=== PATIENT | female | born 1940 | race Caucasian/White ===

== ENCOUNTER 2017-08-15 17:12 | Emergency (ER) | payer MEDICARE, BC ==
[~2017-08-15] VITALS: Ht 170.2 cm; Wt 72.7 kg
[~2017-08-15 17:12] MED LIST: DIOVAN80 MG PO; HCTZ; HCTZ 25MG TAB25 MG PO; LISINOPRIL2.5 MG PO; MOTRIN 800800 MG/TAB PO; NORCO PO
[2017-08-15 17:18] VITALS: BP 201/98; TEMP 97.9
[2017-08-15] MEDS ORDERED: COZAAR 50MG50 MG/TAB PO (17:50)
[2017-08-15] MEDS ORDERED: XARELTO20 MG PO (17:50)
[2017-08-15] MEDS ORDERED: HCTZ 25MG TAB25 MG PO (17:51)
[2017-08-15] MEDS ORDERED: MULTIPLE VITAMI1 CAP PO (17:51)
[2017-08-15] MEDS ORDERED: OMEGA-3 1000 MG1 CAP PO (17:52)
[2017-08-15] MEDS ORDERED: VITAMIN D31000 I1 PO (17:52)
[2017-08-15 17:59] LABS: BASO # 0.1 (0.0-0.2); BASO % 1.1 % (0.0-2.0); EOS # 0.5 (0.0-0.7); EOS % 5.6 % (0-4.0); GRAN # 4.1 (1.4-6.5); GRAN % 48.3 % (42.2-75.2); HEMATOCRIT 46.2 % (37.0-47.0); HEMOGLOBIN 15.3 g/dl (12.5-16.0); LYMPH # 3.2 (1.2-3.4); LYMPH % 37.5 % (20.0-51.0); MEAN CELL VOLUME 86 fl (80.0-100.0); MEAN CORPUSCULAR HEMOGLOBIN 28 pg (27.0-31.0); MEAN CORPUSCULAR HGB CONC 33 g/dl (33.0-37.0); MEAN PLATELET VOLUME 9.2 fl (7.4-10.4); MONO # 0.6 (0.1-0.6); MONO % 6.9 % (1.7-9.3); PLATELET COUNT 241 K/mm3 (130-400); RED BLOOD COUNT 5.38 M/mm3 (4.10-5.30); WHITE BLOOD COUNT 8.4 K/mm3 (4.8-10.8)
[2017-08-15 18:12] LABS: INR 1.3 (0.8-3.0); PROTHROMBIN TIME 14.2 SECONDS (9.7-12.8)
[2017-08-15 19:13] VITALS: PULSE 79
== END 2017-08-15 19:14 | disposition home or self-care (01) ==
LOC: COL.ER 17:12
PROVIDERS: Family Medicine
DX: S06.330A Contusion and laceration of cerebrum, unspecified, without loss of consciousness, initial encounter (principal); I10 Essential (primary) hypertension; K21.9 Gastro-esophageal reflux disease without esophagitis; Z79.01 Long term (current) use of anticoagulants; W01.198A Fall on same level from slipping, tripping and stumbling with subsequent striking against other object, initial encounter

== ENCOUNTER → 2017-10-11 | Day surgery (SDC) | payer MEDICARE, BC ==
[~2017-10-11] VITALS: Ht 170.2 cm; Wt 73.1 kg
[~2017-10-11] MED LIST changes: +CALTRATE-600 W600 MG PO; +COZAAR 50MG50 MG/TAB PO; +FLAX OIL1000 MG PO; +MULTIPLE VITAMI1 CAP PO; +OMEGA-3 1000 MG1 CAP PO; +RESTASIS 60VL OU; +TUMS500 MG PO; +TYLENOL 500MG500 MG PO; +VITAMIN D31000 I1 PO; +XARELTO20 MG PO
[2017-10-11 13:12] VITALS: BP 128/77; PULSE 86; TEMP 97.5
[2017-10-11 15:21] VITALS: BP 121/75; PULSE 80; TEMP 96.9
[2017-10-11 15:30] VITALS: BP 122/81; PULSE 82
[2017-10-11 15:50] VITALS: BP 159/84; PULSE 82
[2017-10-11 16:31] VITALS: BP 118/74; PULSE 76
== END ==
LOC: SDCO 12:33
DX: Z12.11 Encounter for screening for malignant neoplasm of colon (principal); K64.0 First degree hemorrhoids; K57.30 Diverticulosis of large intestine without perforation or abscess without bleeding; K22.2 Esophageal obstruction; K44.9 Diaphragmatic hernia without obstruction or gangrene; K29.30 Chronic superficial gastritis without bleeding; I12.9 Hypertensive chronic kidney disease with stage 1 through stage 4 chronic kidney disease, or unspecified chronic kidney disease; E11.22 Type 2 diabetes mellitus with diabetic chronic kidney disease; N18.3 Chronic kidney disease, stage 3 (moderate); K21.9 Gastro-esophageal reflux disease without esophagitis; M19.90 Unspecified osteoarthritis, unspecified site; E78.5 Hyperlipidemia, unspecified; Z86.718 Personal history of other venous thrombosis and embolism; Z90.49 Acquired absence of other specified parts of digestive tract; Z79.01 Long term (current) use of anticoagulants
CPT/HCPCS: OP; C1726; J2704; J7030

== ENCOUNTER → 2017-10-21 | Outpatient (CLI) | payer MEDICARE, BC | LOC: MC.RAD 09:33 | DX: Z12.31 Encounter for screening mammogram for malignant neoplasm of breast (principal) ==

== ENCOUNTER 2017-11-01 11:43 | Day surgery (SDC) | payer MEDICARE, BC ==
[~2017-11-01] VITALS: Ht 170.2 cm; Wt 73.5 kg
[~2017-11-01 11:43] MED LIST changes: +CENTRUM SILVER1 TAB PO; -MULTIPLE VITAMI1 CAP PO
[2017-11-01] MEDS ORDERED: PROTONIX 40MG T40 MG PO (12:25)
[2017-11-01 12:49] VITALS: BP 131/82; PULSE 70; TEMP 97.7
[2017-11-01 14:50] VITALS: BP 130/75; PULSE 79; TEMP 96.5
[2017-11-01 15:05] VITALS: BP 123/70; PULSE 77
[2017-11-01 15:20] VITALS: BP 124/68; PULSE 75
[2017-11-01 15:35] VITALS: BP 139/66; PULSE 64
== END 2017-11-01 15:55 | disposition home or self-care (01) ==
LOC: SDCO 11:43
DX: K44.9 Diaphragmatic hernia without obstruction or gangrene (principal); K29.30 Chronic superficial gastritis without bleeding; K21.9 Gastro-esophageal reflux disease without esophagitis; K58.9 Irritable bowel syndrome, unspecified; Z86.718 Personal history of other venous thrombosis and embolism; Z90.49 Acquired absence of other specified parts of digestive tract; M19.90 Unspecified osteoarthritis, unspecified site; I12.9 Hypertensive chronic kidney disease with stage 1 through stage 4 chronic kidney disease, or unspecified chronic kidney disease; E11.22 Type 2 diabetes mellitus with diabetic chronic kidney disease; N18.3 Chronic kidney disease, stage 3 (moderate)
CPT/HCPCS: OP; J2704; J7030

== ENCOUNTER → 2018-11-10 | Outpatient (CLI) | payer MEDICARE, BC ==
[~2018-11-10] MED LIST changes: +PROTONIX 40MG T40 MG PO
== END ==
LOC: MC.RAD 13:25
DX: Z12.31 Encounter for screening mammogram for malignant neoplasm of breast (principal)

== ENCOUNTER → 2019-11-27 | Outpatient (CLI) | payer MEDICARE, BC | LOC: MC.RAD 11:07 | DX: Z12.31 Encounter for screening mammogram for malignant neoplasm of breast (principal) ==

== ENCOUNTER → 2020-12-02 | Outpatient (CLI) | payer MEDICARE, BC | LOC: MC.RAD 09:30 | DX: Z12.31 Encounter for screening mammogram for malignant neoplasm of breast (principal) ==

== ENCOUNTER → 2022-07-01 | Outpatient (CLI) | payer MEDICARE, BC | LOC: COL.VAS 10:08 | DX: Z86.718 Personal history of other venous thrombosis and embolism (principal) ==

== ENCOUNTER → 2023-01-18 | Outpatient (CLI) | payer MEDICARE, BC | LOC: MC.RAD 11:13 | DX: Z12.31 Encounter for screening mammogram for malignant neoplasm of breast (principal) ==

== ENCOUNTER 2023-11-22 18:01 | Inpatient (IN) | payer MEDICARE, BC ==
[~2023-11-22] VITALS: Ht 167.6 cm; Wt 60.3 kg
[2023-11-22] MEDS ORDERED: NS 1,000 ML IV ONE (18:15)
[2023-11-22 18:34] LABS: BASO # 0.1 K/mm3 (0.0-0.2); BASO % 0.3 % (0.0-2.0); EOS % 0.2 % (0.0-4.0); GRAN # 17.2 K/mm3 (1.4-6.5); GRAN % 84.5 % (42.2-75.2); HEMOGLOBIN 11.6 g/dl (12.5-16.0); LYMPH # 1.8 K/mm3 (1.2-3.4); LYMPH % 8.6 % (20.0-51.0); MEAN CELL VOLUME 77 fl (80.0-100.0); MEAN CORPUSCULAR HEMOGLOBIN 25 pg (27-31); MEAN CORPUSCULAR HGB CONC 32 g/dl (33.0-37.0); MEAN PLATELET VOLUME 8.2 fl (7.4-10.4); MONO # 1.1 K/mm3 (0.1-0.6); MONO % 5.2 % (1.7-9.3); PLATELET COUNT 356 K/mm3 (130-400); RED BLOOD COUNT 4.69 M/mm3 (4.10-5.30); REDCELL DISTRIBUTION WIDTH-CV 15.9 % (11.5-14.5)
[2023-11-22 18:36] LABS: HEMATOCRIT 36.3 % (37.0-47.0)
[2023-11-22 18:52] LABS: ALBUMIN 2.3 gm/dL (3.4-4.8); BILIRUBIN,TOTAL 0.3 mg/dL (0.2-1.2); CALCIUM 9.4 mg/dL (8.4-10.2); CREATININE, serum 0.88 mg/dL (0.57-1.11); POTASSIUM 4.5 mmol/L (3.5-4.5); TOTAL PROTEIN 6.5 gm/dL (6.2-8.1)
[2023-11-22 19:59] LABS: COLLECTION METHOD CLEAN CATCH
[2023-11-22 20:24] LABS: SQUAMOUS EPITHELIAL 0-2 /hpf (0-10); URINE APPEARANCE Clear (CLEAR/HAZY); URINE BACTERIA None Seen /hpf (NONE SEEN); URINE BLOOD 1+ (NEGATIVE); URINE COLOR Yellow (YELLOW); URINE GLUCOSE Negative (NEGATIVE); URINE KETONE Negative (NEGATIVE); URINE NITRATE Negative (NEGATIVE); URINE PROTEIN(semi-quant) Negative (NEGATIVE); URINE RBC 0-2 /hpf (0-2)
[2023-11-22] MEDS ORDERED: diphenhydrAMINE 50 MG/ML 1 ML VIAL IV ONE (20:45)
[2023-11-22] MEDS ORDERED: Iohexol 300 - 100 ML VIAL IV ONE (21:19)
[2023-11-22] MEDS ORDERED: NS 60 ML IV ONE (21:20)
[2023-11-22] MEDS ORDERED: cefTRIAXone 1 G in Water For Injection,Sterile 10 ML IV ONE (22:30)
[2023-11-22] MEDS ORDERED: Ondansetron 4 MG/2 ML VIAL IV PRN (22:30)
[2023-11-22] MEDS ORDERED: Acetaminophen 325 MG TAB PO PRN (22:30)
[2023-11-22] MEDS ORDERED: metroNIDAZOLE 100 ML IV ONE (22:30)
[2023-11-22] MEDS ORDERED: LR 1,000 ML IV SCH (22:45)
[2023-11-22] MEDS ORDERED: Morphine 4 MG/ML VIAL IV ONE (23:00)
[2023-11-23] VITALS (18 sets, daily range): BP systolic 109–179; BP diastolic 46–88; PULSE 64–87; TEMP 97.4–99.2
[2023-11-23] MEDS ORDERED: TOPROL XL 25MG25 MG PO (01:10)
[2023-11-23] MEDS ORDERED: TAMBOCOR50 MG PO (01:10)
[2023-11-23] MEDS ORDERED: GLUCOPHAGE500 MG/TAB PO (01:11)
[2023-11-23] MEDS ORDERED: FOSAMAX 35MG35 MG PO (01:11)
[2023-11-23] MEDS ORDERED: Morphine 4 MG/ML VIAL IV PRN ×2 (01:15)
[2023-11-23] MEDS ORDERED: Naloxone 0.4 MG/ML VIAL IV PRN (01:15)
[2023-11-23] MEDS ORDERED: Dextrose 50% Water 25 GM/50 ML SYRINGE IV PRN (01:30)
[2023-11-23] MEDS ORDERED: Dextrose (Glucose) 15 GM (4 x 3.75 GM) Chewable TABLET PACK PO PRN (01:30)
[2023-11-23] MEDS ORDERED: Glucagon 1 MG VIAL IM PRN (01:30)
--- NOTE | 2023-11-23 01:45 | NUR ---
pt arrived to room 345 at 0006. pt is a&o x 2-3 with confusion. pt is not an accurate historian. admission assessment and physical assessment complete. attempted med rec but pt is confused/cannot remember all of her medications. called next of kin for medication list and they are looking for it. venessa WOODS is aware of medication discrepancies. pt is unsteady with gait. pt reports all medications given in the ED have provided her relief. pt on RA. ivf running to left hand iv at 100ml/hr. bed alarm on. call light in reach. all needs met at this time.
[2023-11-23 07:06] LABS: BASO # 0.1 K/mm3 (0.0-0.2); BASO % 0.4 % (0.0-2.0); CALCIUM 8.8 mg/dL (8.4-10.2); CREATININE, serum 0.8 mg/dL (0.57-1.11); EOS # 0.1 K/mm3 (0.0-0.7); EOS % 0.4 % (0.0-4.0); GRAN # 13.7 K/mm3 (1.4-6.5); GRAN % 80.3 % (42.2-75.2); HEMOGLOBIN 11.7 g/dl (12.5-16.0); LYMPH # 2.1 K/mm3 (1.2-3.4); LYMPH % 12.1 % (20.0-51.0); MEAN CELL VOLUME 78 fl (80.0-100.0); MEAN CORPUSCULAR HEMOGLOBIN 25 pg (27-31); MEAN CORPUSCULAR HGB CONC 32 g/dl (33.0-37.0); MEAN PLATELET VOLUME 8.6 fl (7.4-10.4); MONO # 0.9 K/mm3 (0.1-0.6); MONO % 5.5 % (1.7-9.3); PLATELET COUNT 380 K/mm3 (130-400); POTASSIUM 3.9 mmol/L (3.5-4.5); RED BLOOD COUNT 4.72 M/mm3 (4.10-5.30); REDCELL DISTRIBUTION WIDTH-CV 15.8 % (11.5-14.5)
[2023-11-23 07:08] LABS: HEMATOCRIT 36.8 % (37.0-47.0)
[2023-11-23] MEDS ORDERED: Insulin Aspart (NovoLOG) SQ SCH (08:00)
--- NOTE | 2023-11-23 08:00 | NUR ---
PATIENT IS A&O X2, DROWSY BUT EASILY ARROUSED. PATIENT HAS HX OF DEMENTIA. VSS ON TELE. NO COMPLAINTS AT THIS TIME. PATIENT SLEEPING UP IN BED. NPO FOR POSSIBLE ABSCESS DRAIN PLACEMENT TODAY. IV ABX INFUSING VIA PUMP. AM BS WAS 93, NO SSI REQUIRED. HEAD TO TOE ASSESSMENT COMPLETE. NO OTHER NEEDS AT THIS TIME. CALL LIGHT IN REACH. BED ALARM ON.
--- NOTE | 2023-11-23 11:30 | NUR ---
Pt to ct per wheelchair per ct staff. Pt up onto ct table in supine position. Monitors applied and O2 on at 2l/nc.
[2023-11-23] MEDS ORDERED: fentaNYL 50 MCG/ML 2 ML VIAL IV SCH (11:39)
[2023-11-23] MEDS ORDERED: Midazolam 2 MG/2 ML VIAL IV SCH (11:39)
--- NOTE | 2023-11-23 11:45 | NUR ---
Purulent drainage removed from drain site and placed in specimen container. Removed a total of 35 mls of purulent drainage.
--- NOTE | 2023-11-23 11:50 | NUR ---
#[address] IN LEFT LOWER ABDOMEN.
--- NOTE | 2023-11-23 17:12 | NUR ---
bed worker notes patient was sleeping when she went to meet with the patient to discuss discharge planning. Patient woke up and was able to tell the social services assistant that she lives in [place] and her PCP is Dr. Youssef. Patient struggled to stay awake. SW decided to come back the following day to finish the intake and discuss PT/OT recommendations of post acute rehab.
[2023-11-23] MEDS ORDERED: FOSAMAX 10M10 MG/TAB PO (17:47)
[2023-11-23] MEDS ORDERED: FOLIC ACID0.4 MG PO (17:50)
--- NOTE | 2023-11-23 19:07 | NUR ---
report received from emperatriz ram. pt resting in bed eating dinner. pt denies pain. bed alarm on. call light in reach. all needs met at this time.
[2023-11-23] MEDS ORDERED: Carboxymethylcellulose PF Ophth 0.4 ML DROPPERETTE OP SCH (21:00)
[2023-11-23] MEDS ORDERED: cycloSPORINE Ophth Emulsion **** subs to Carboxymethylcellulose 1 % Ophth Gel OP SCH (21:00)
--- NOTE | 2023-11-23 21:43 | NUR ---
critical care called and reported pacer spikes on the pt tele strip. pt remains asymptomatic. updated [facility]. no new orders at this time.
--- NOTE | 2023-11-23 23:23 | NUR ---
shift assessment complete, see documentation. iv abx running to right forearm iv without issue. pt amb to bathroom with slightly unsteady gait. pt continues to deny pain. abscess drain intact with bloody drainage. pt resting in bed. bed alarm on. call light in reach. all needs met at this time.
[2023-11-24] VITALS (10 sets, daily range): BP systolic 128–156; BP diastolic 67–71; PULSE 61–82; TEMP 97.5–98.2
[2023-11-24 07:05] LABS: BASO # 0.1 K/mm3 (0.0-0.2); BASO % 0.3 % (0.0-2.0); EOS # 0.1 K/mm3 (0.0-0.7); EOS % 0.3 % (0.0-4.0); GRAN % 81.7 % (42.2-75.2); HEMOGLOBIN 11.1 g/dl (12.5-16.0); LYMPH # 2.3 K/mm3 (1.2-3.4); LYMPH % 12.3 % (20.0-51.0); MEAN CELL VOLUME 78 fl (80.0-100.0); MEAN CORPUSCULAR HEMOGLOBIN 25 pg (27-31); MEAN CORPUSCULAR HGB CONC 32 g/dl (33.0-37.0); MEAN PLATELET VOLUME 8.7 fl (7.4-10.4); MONO # 0.8 K/mm3 (0.1-0.6); MONO % 4.3 % (1.7-9.3); PLATELET COUNT 362 K/mm3 (130-400); REDCELL DISTRIBUTION WIDTH-CV 15.9 % (11.5-14.5)
[2023-11-24 07:11] LABS: HEMATOCRIT 34.9 % (37.0-47.0)
[2023-11-24 07:23] LABS: CALCIUM 8.6 mg/dL (8.4-10.2); CREATININE, serum 0.87 mg/dL (0.57-1.11); MAGNESIUM 1.6 mg/dL (1.6-2.6); POTASSIUM 3.7 mmol/L (3.5-4.5)
--- NOTE | 2023-11-24 13:33 | NUR ---
Initial visit; Patient thanked Surgical Resident for looking in on her and offering God's blessings. Rose Mary and Surgical Resident talked about her recent illness and her pain level. She was receptive to Surgical Resident keeping her in her prayers. Surgical Resident will follow-up tomorrow.
--- NOTE | 2023-11-24 13:53 | NUR ---
log raft worker reviewed PT/OT notes. PT states home with home health. OT states likely post acute rehab. MEGAN and SW student, Lisa, met with patient to discuss discharge planning. Patient lives alone in [place]. Best contact is patient's nephew, Fernie, P# [phone]. PCP is Domonique, [facility]. No issues affording medications. INsurance is Medicaid A and B and BCBS. DPOA-HC Is Fernie and Karissa. Patient has walker but does not currently use it. Reports to be independent with ADLS and her family transports her to appointments. MEGAN provided the PT and OT recommendations along with the Medicare.gov list of options for HH and SNF. MEGAN will follow up for patient's choice of service and which agency. Discharge plan: TBD
[2023-11-24] MEDS ORDERED: GLUCOPHAGE XR500 M1 PO (16:16)
--- NOTE | 2023-11-24 16:16 | NUR ---
Metformin clarified with the patient, [facility], and with Dr. Youssef's Nurse. Dr. Aquino notified and med orders.
--- NOTE | 2023-11-24 16:20 | NUR ---
food service utility worker met with patient, family members and patient's nurse. Patient is hoping to return home with home health. SW updated them that they were uncertain if patient would need to receive IV antibiotics still upon discharge or if she would switch to oral antibiotics. Family members are going to review home health options and notify the mental health social worker. SW will continue to follow.
[2023-11-24 17:08] LABS: CLOSTRIDIUM DIFF A/B NEG
[2023-11-24] MEDS ORDERED: Loperamide 2 MG CAP PO PRN (17:30)
[2023-11-24] MEDS ORDERED: metFORMIN XR 500 MG TAB PO SCH (21:00)
[2023-11-25] VITALS (13 sets, daily range): BP systolic 114–177; BP diastolic 66–73; PULSE 52–59; TEMP 97.3–98
[2023-11-25 06:33] LABS: HEMOGLOBIN 10.5 g/dl (12.5-16.0); MEAN CELL VOLUME 79 fl (80.0-100.0); MEAN CORPUSCULAR HEMOGLOBIN 25 pg (27-31); MEAN CORPUSCULAR HGB CONC 32 g/dl (33.0-37.0); MEAN PLATELET VOLUME 8.6 fl (7.4-10.4); PLATELET COUNT 369 K/mm3 (130-400); RED BLOOD COUNT 4.19 M/mm3 (4.10-5.30)
[2023-11-25 06:35] LABS: HEMATOCRIT 32.9 % (37.0-47.0)
[2023-11-25 06:47] LABS: CALCIUM 8.6 mg/dL (8.4-10.2); CREATININE, serum 0.79 mg/dL (0.57-1.11); POTASSIUM 3.6 mmol/L (3.5-4.5)
[2023-11-25 07:43] LABS: ANISOCYTOSIS 1+; BAND 8 % (0-10); EOSINOPHIL 2 % (0-4); LYMPHOCYTE 13 % (20.0-51.0); METAMYELOCYTE 1 % (0-0); NEUTROPHILS 71 % (42.0-75.2); PLATELET ESTIMATE NORMAL (NORMAL)
--- NOTE | 2023-11-25 08:40 | NUR ---
Assisted pt to the restroom. Pt did well, standby assist with walker. Pt not having any complaints of pain at this time. Minimal output in the abscess drain. Assisted pt to the chair once done and assisted with ordering breakfast
[2023-11-25] MEDS ORDERED: Potassium Bicarbonate/Citrate 20 MEQ Effervescent TAB PO SCH (09:00)
[2023-11-25] MEDS ORDERED: *Potassium Replacement Protocol MC SCH (09:00)
--- NOTE | 2023-11-25 09:31 | NUR ---
Follow-up visit; Patient states that she is feeling better and getting stronger. She thanked Director On Air for thinking of her and continuing to keep her in Director On Air's prayers. Director On Air wished her well and offered God's blessings.
--- NOTE | 2023-11-25 10:18 | NUR ---
Pt continues to do well. Finished her breakfast with no complaints. Pt remains sitting up in the chair
--- NOTE | 2023-11-25 13:00 | NUR ---
Pt refused lunch, had protein drink instead. Pt continues to get up to the restroom often. She does well with standby assist using a walker. No complaints of pain. Updated family on pt status. Discussed with social work as well.
--- NOTE | 2023-11-25 14:54 | NUR ---
Report given to Andrew NUNEZ
--- NOTE | 2023-11-25 15:01 | NUR ---
REPORT FROM WYATT MARADIAGA RN. ASSUMING PT CARE ATTHIS TIME.
--- NOTE | 2023-11-25 16:22 | NUR ---
SW Student faxed SNF referrals to [facility].
--- NOTE | 2023-11-25 16:45 | NUR ---
supervisor hand workers was notified by the patient's nurse that patient's family would like SNF referrals sent. SW met with patient and she chose [facility], [facility] and [facility]. MEGAN Student, Lisa, faxed referral to the above facilities.
--- NOTE | 2023-11-25 19:55 | NUR ---
ALERTED BY PCT, AFIA HAD BLOODY STOOL-BRIGHT RED AND MINIMAL. CONSULTED MD JAYLIN IN PERSON-WHOM PROVIDED BOTH THIS NURSE AND PATIENT'S FAMILY MEMBER WITH DIVERTICULITIS EDUCATION. HE STAYED LONGER WITH FAMILY MEMBER AND ADDRESSED OTHER CONCERNS. NO NEW ORDERS
--- NOTE | 2023-11-25 20:00 | NUR ---
UPON SHIFT ASSESSMENT, AFIA WAS AXO X4 AND UP IN BED. PERCUTANEOUS DRAIN BAG ON LT SIDE CONTAINS 20 MLS SEROSANGUINEOUS FLUID. INSERTION SITE IS CDI. SHE DENIES PAIN OR NEEDS AT THIS TIME. BEDALARM ON.
--- NOTE | 2023-11-25 20:00 | NUR ---
BP RECHECK- 165 SYSTOLIC TRENDING DOWN FROM 177.
--- NOTE | 2023-11-25 23:47 | NUR ---
BOWEL MOVEMENT-SEMI FORMED- NO BLOOD NOTED
[2023-11-26] VITALS (13 sets, daily range): BP systolic 134–191; BP diastolic 66–74; PULSE 47–67; TEMP 97.4–98.3
--- NOTE | 2023-11-26 08:00 | NUR ---
PATIENT IS A&O. VSS ON TELE. NO COMPLAINTS THIS AM. PATIENT NOW SITTING IN BEDSIDE CHAIR AND BREAKFAST IS ORDERED. AM MEDS GIVEN. IV ABX INFUSING VIA PUMP INTO RIGHT FORARM IV. ABSCESS DRAIN WITH APPROX 30CC OF RED-TINGED PURULENT DRAINAGE NOTED. 1 ASSIST WITH WALKER. PT/OT CONSULTED. HEAD TO TOE ASSESSMENT COMPLETE. NO OTHER NEEDS AT THIS TIME. CALL LIGHT IN REACH. CHAIR ALARM ON.
[2023-11-26 10:17] LABS: BASO % 0.4 % (0.0-2.0); EOS # 0.3 K/mm3 (0.0-0.7); EOS % 2.7 % (0.0-4.0); GRAN # 7.8 K/mm3 (1.4-6.5); HEMOGLOBIN 10.4 g/dl (12.5-16.0); LYMPH % 18.1 % (20.0-51.0); MEAN CELL VOLUME 78 fl (80.0-100.0); MEAN CORPUSCULAR HEMOGLOBIN 25 pg (27-31); MEAN CORPUSCULAR HGB CONC 32 g/dl (33.0-37.0); MEAN PLATELET VOLUME 8.8 fl (7.4-10.4); MONO # 0.6 K/mm3 (0.1-0.6); MONO % 5.5 % (1.7-9.3); PLATELET COUNT 421 K/mm3 (130-400); RED BLOOD COUNT 4.21 M/mm3 (4.10-5.30); REDCELL DISTRIBUTION WIDTH-CV 16.1 % (11.5-14.5)
[2023-11-26 10:39] LABS: ALBUMIN 1.8 gm/dL (3.4-4.8); BILIRUBIN,TOTAL 0.3 mg/dL (0.2-1.2); CALCIUM 8.8 mg/dL (8.4-10.2); CREATININE, serum 0.72 mg/dL (0.57-1.11); POTASSIUM 3.9 mmol/L (3.5-4.5); TOTAL PROTEIN 5.7 gm/dL (6.2-8.1)
--- NOTE | 2023-11-26 16:05 | NUR ---
PATIENT GETTING INTO SHOWER WITH PCT. IV & DRAIN SITES COVERED. PATIENT TOLERATING WELL
--- NOTE | 2023-11-26 20:34 | NUR ---
PT IN BED, IS ALERT AND ORIENTED X3. HAS INT TO RFA, FLUSHES WELL. HS MEDS GIVEN WITHOUT PROBLEM. DENIES NEED FOR PAIN MEDS. HAS ABSCESS ACCORDIAN DRAIN TO LT ABD, ACCORDIAN COMPRESSED, DRAINAGE PURULENT. VOIDING WITHOUT PROBLEM, ONE ASSIST TO BATHROOM WITH WALKER. BED ALARM SET FOR SAFETY.
--- NOTE | 2023-11-26 20:51 | NUR ---
LABETOLOL 10MG IVP FOR [id number].
[2023-11-27] VITALS (12 sets, daily range): BP systolic 132–180; BP diastolic 56–77; PULSE 47–67; TEMP 97.3–97.8
--- NOTE | 2023-11-27 04:00 | NUR ---
PT FORGETS TO CALL FOR ASSIST, BED ALARM ON. ASSISTED TO BATHROOM AND BACK TO BED. EMPTIED 20CC FROM ABSCESS DRAIN.
--- NOTE | 2023-11-27 08:00 | NUR ---
PATIENT IS A&O. MOBILE DEVICE ENGINEER REPORTED A LITTLE WHERE PATIENT SET OFF THE ALARM GETTING OUT OF BED. MOBILE DEVICE ENGINEER STATED SHE REORIENTED EASILY. VSS ON TELE. NO COMPLAINTS THIS AM. PATIENT NOW SITTING IN BEDSIDE CHAIR AND BREAKFAST IS ORDERED. AM MEDS GIVEN. IV ABX INFUSING VIA PUMP INTO RIGHT FORARM IV. ABSCESS DRAIN WITH SCANT OF PERALTA, PURULENT PURULENT DRAINAGE NOTED. 1 ASSIST WITH WALKER. PT/OT CONSULTED. HEAD TO TOE ASSESSMENT COMPLETE. NO OTHER NEEDS AT THIS TIME. CALL LIGHT IN REACH. CHAIR ALARM ON.
[2023-11-27 13:32] LABS: HEMOGLOBIN 11.2 g/dl (12.5-16.0); MEAN CELL VOLUME 78 fl (80.0-100.0); MEAN CORPUSCULAR HEMOGLOBIN 25 pg (27-31); MEAN CORPUSCULAR HGB CONC 32 g/dl (33.0-37.0); MEAN PLATELET VOLUME 8.7 fl (7.4-10.4); PLATELET COUNT 467 K/mm3 (130-400); RED BLOOD COUNT 4.47 M/mm3 (4.10-5.30); REDCELL DISTRIBUTION WIDTH-CV 16.2 % (11.5-14.5)
[2023-11-27 13:35] LABS: HEMATOCRIT 34.8 % (37.0-47.0)
--- NOTE | 2023-11-27 21:31 | NUR ---
PT IN BED, JUST RETURNED FROM BATHROOM WITH ONE ASSIST. HAS ABSCESS DRAIN COMPRESSED TO LT ABD, MINIMAL PURULENT DRAINAGE IN BAG. PT DENIES ABD PAIN. ABD SOFT. HAVING STOOLS. INT TO RFA, FLUSHES WELL. VOIDING WITHOUT PROBLEM. PT REFUSED METFORMIN XL, REPORTS HER DOCTOR PUT HER ON METFORMIN 500MG TABS, NOT XL, D/T THE SIZE OF THE TABLET, PT HAD DIFFICULTY SWALLOWING THE LARGER XL TABS. WILL PASS INFORMATION TO DAYSHIFT. PT IS ALERT AND ORIENTED, IMPULSIVE AT TIMES WITH ACTIVITY WHEN SHE NEEDS TO USE THE BATHROOM. BED ALARM ON.
[2023-11-27] MEDS ORDERED: GLUCOPHAGE500 MG/TAB PO (21:35)
[2023-11-28] VITALS (7 sets, daily range): BP systolic 159–178; BP diastolic 69–82; PULSE 50–56; TEMP 97.4–98
[2023-11-28 07:12] LABS: HEMOGLOBIN 10.8 g/dl (12.5-16.0); MEAN CELL VOLUME 79 fl (80.0-100.0); MEAN CORPUSCULAR HEMOGLOBIN 25 pg (27-31); MEAN CORPUSCULAR HGB CONC 32 g/dl (33.0-37.0); MEAN PLATELET VOLUME 8.4 fl (7.4-10.4); PLATELET COUNT 484 K/mm3 (130-400); RED BLOOD COUNT 4.37 M/mm3 (4.10-5.30); REDCELL DISTRIBUTION WIDTH-CV 16.2 % (11.5-14.5)
[2023-11-28 07:18] LABS: HEMATOCRIT 34.3 % (37.0-47.0)
[2023-11-28 07:21] LABS: CALCIUM 9.3 mg/dL (8.4-10.2); CREATININE, serum 0.84 mg/dL (0.57-1.11); POTASSIUM 4.1 mmol/L (3.5-4.5)
--- NOTE | 2023-11-28 08:00 | NUR ---
PATIENT IS A&O. MACHINIST TOOL AND DIE REPORTED NO SUNDOWNING LAST NIGHT AND STATES SHE SLEPT WELL. VSS ON TELE. NO COMPLAINTS THIS AM. PATIENT NOW SITTING IN BEDSIDE CHAIR AND BREAKFAST HERE. AM MEDS GIVEN. IV ABX INFUSING VIA PUMP INTO RIGHT FORARM IV. ABSCESS DRAIN WITH SCANT OF PERALTA/PURULENT DRAINAGE. 1 ASSIST TO SBA WITH WALKER. PT/OT CONSULTED. HEAD TO TOE ASSESSMENT COMPLETE. NO OTHER NEEDS AT THIS TIME. CALL LIGHT IN REACH. CHAIR ALARM ON.
[2023-11-28] MEDS ORDERED: Lisinopril 10 MG TAB PO SCH (09:10)
[2023-11-28] MEDS ORDERED: ZESTRIL 10MG10 MG PO (09:21)
[2023-11-28] MEDS ORDERED: GLUCAGEN1 MG IM (09:23)
[2023-11-28] MEDS ORDERED: NOVOLOG 100U100 U/M1 SQ (09:23)
[2023-11-28] MEDS ORDERED: CIPRO 500MG TA500 MG PO (09:24)
[2023-11-28] MEDS ORDERED: FLAGYL500 MG PO (09:24)
--- NOTE | 2023-11-28 11:30 | NUR ---
DC'D ABSCESS DRAIN PER ORDERS. PATIENT IS DISCHARGING TO [facility] TODAY. SEE DISCHARGE ORDERS. DRAIN TIP INTACT AND PATIENT TOLERATED WELL. NOTED 20CC OF PERALTA/PURULENT DRAINAGE IN BAG. COVERED SITE WITH GAUZE & OCCLUSIVE TAPE.
--- NOTE | 2023-11-28 13:50 | NUR ---
PATIENT DISCHARGING TO [facility] VIA WC WITH THEIR VAN SERVICE. INFO PACKET GIVEN TO CHILD NUTRITION MANAGER. CALLED REPORT TO NURSE AT [facility]. IV DC'D. TELE DC'D. PATIENT IS DRESSED, PACKED AND DISCHARGED.
--- NOTE | 2023-11-28 16:55 | NUR ---
railway track worker was notified [facility] is able to accept patient. MEGAN met with patient and notified her and her family members. Patient would like to go to [facility]. SW reviewed the important message from Medicare with patient. Patient signed, sw made a copy placed original in chart and provided copy to patient. SW faxed clincial updates and discharge orders to [facility]. [facility] is able to transport at 145 pm. MEGAN notified patient, patient's family members, school community relations coordinator and nurse. Discharge plan: SNF - [facility]
== END 2023-11-28 13:50 | DRG 392 ==
LOC: COL.ER 18:01 → SURG 22:33 → COL.ER 22:33 → SURG 11-23 23:59
PROVIDERS: Internal Medicine; Physician Assistant; Surgery; ADMIT Internal Medicine
PROC: 0W9J30Z Drainage of Pelvic Cavity with Drainage Device, Percutaneous Approach (ICD-10-PCS; principal; 2023-11-23)
DX: K57.20 Diverticulitis of large intestine with perforation and abscess without bleeding (principal); I48.20 Chronic atrial fibrillation, unspecified; E87.1 Hypo-osmolality and hyponatremia; K92.1 Melena; I10 Essential (primary) hypertension; E11.9 Type 2 diabetes mellitus without complications; M81.0 Age-related osteoporosis without current pathological fracture; Z20.822 Contact with and (suspected) exposure to COVID-19; E86.1 Hypovolemia; N28.89 Other specified disorders of kidney and ureter; F03.90 Unspecified dementia, unspecified severity, without behavioral disturbance, psychotic disturbance, mood disturbance, and anxiety; B96.89 Other specified bacterial agents as the cause of diseases classified elsewhere; B96.20 Unspecified Escherichia coli [E. coli] as the cause of diseases classified elsewhere; Z96.651 Presence of right artificial knee joint; I25.2 Old myocardial infarction; Z90.49 Acquired absence of other specified parts of digestive tract; Z86.718 Personal history of other venous thrombosis and embolism; Z88.8 Allergy status to other drugs, medicaments and biological substances; Z91.041 Radiographic dye allergy status; Z79.01 Long term (current) use of anticoagulants; Z79.84 Long term (current) use of oral hypoglycemic drugs; Z79.899 Other long term (current) drug therapy; Z23 Encounter for immunization
CPT/HCPCS: C1729; C1769; J0696; J1200; J1650; J1815; J1836; J1920; J2250; J2270; J2543; J3010; J7030; J7120; Q9967